=== PATIENT | female | born 1980 ===

== ENCOUNTER 2021-03-05 12:00 | Outpatient (REF) | payer MEDICAID, SELFPAY ==
[2021-03-07 11:31] LABS: COVID-19 RT-PCR UVMMC Result Negative (Negative)
== END 2021-03-05 12:01 | disposition home or self-care (01) ==
LOC: NCHCN 12:00
PROVIDERS: PCP Physician Assistant; Visit Provider Physician Assistant
DX: Z20.822 Contact with and (suspected) exposure to COVID-19 (principal)
CPT/HCPCS: U0003